=== PATIENT | female | born 1985 | race Caucasian/White ===

== ENCOUNTER 2023-04-18 05:30 | Day surgery (SDC) | payer OTHER ==
[~2023-04-18 05:30] MED LIST: EMERGEN-C 1,01000 MG PO; PRENATAL TABLE1 EAC4 PO; [UNRECOGNIZED DRUG - OTHER] PO
== END 2023-04-18 17:05 | disposition home or self-care (01) ==
LOC: CIR.AMB 05:30
PROVIDERS: ATTEND Plastic Surgery Surgery of the Hand
DX: N64.2 Atrophy of breast (principal); N64.81 Ptosis of breast; N62 Hypertrophy of breast; E88.1 Lipodystrophy, not elsewhere classified